=== PATIENT | male | born 1950 | race Caucasian/White ===

== ENCOUNTER 2018-10-26 09:48 | Outpatient (CLI) | payer OTHER ==
[~2018-10-26 09:48] MED LIST: ASPI-496 PO; ATOR20TA PO; LEVO500T47 PO; MAGN400T26 PO; METO-93 PO; METO25TA91 PO
== END 2018-10-26 23:59 | disposition home or self-care (01) ==
LOC: CFH 09:48
PROVIDERS: ATTEND Internal Medicine Cardiovascular Disease
DX: I08.8 Other rheumatic multiple valve diseases (principal); I25.10 Atherosclerotic heart disease of native coronary artery without angina pectoris; E78.5 Hyperlipidemia, unspecified
CPT/HCPCS: 93306

== ENCOUNTER 2019-04-27 06:26 | Day surgery (SDC) | payer OTHER ==
[~2019-04-27] VITALS: Ht 175.3 cm; Wt 82.6 kg
[2019-04-27] MEDS ORDERED: LACTATED RINGERS 1,000 ML IV SCH (07:06)
[2019-04-27] MEDS ORDERED: TRAM50TA2 PO (07:18)
[2019-04-27] MEDS ORDERED: LIDOCAINE-MPF 1%, 2ML INFIL ONE (07:30)
[2019-04-27 07:42] VITALS: BP 126/79
[2019-04-27] MEDS ORDERED: PROPOFOL 10 MG/ML, 50ML ONE (08:43)
[2019-04-27] MEDS ORDERED: MEPERIDINE/PF 25MG/0.5ML IVPush PRN (09:00)
[2019-04-27] MEDS ORDERED: HYDROmorphone 2 MG/ML, 1ML IVPush PRN (09:00)
[2019-04-27] MEDS ORDERED: hydrALAzine 20 MG/ML, 1ML IV PRN (09:00)
[2019-04-27] MEDS ORDERED: DIAZEPAM 5 MG/ML, 2ML IVPush PRN (09:00)
[2019-04-27] MEDS ORDERED: PROMETHAZINE 25 MG/ML, 1ML IV PRN (09:00)
[2019-04-27] MEDS ORDERED: LABETALOL 5MG/ML, 20ML IV PRN (09:00)
[2019-04-27] MEDS ORDERED: OXYcodone 5 MG/5 ML ORAL.SOL UDC PO PRN (09:00)
[2019-04-27] MEDS ORDERED: ACETAMINOPHEN 325 MG TABLET PO PRN (09:00)
[2019-04-27] MEDS ORDERED: ALBUTEROL SULFATE 2.5 MG/3 ML NPPB PRN (09:00)
[2019-04-27] MEDS ORDERED: FENTANYL PF 100 MCG/2ML IV PRN (09:00)
[2019-04-27] MEDS ORDERED: KETOROLAC 30 MG/1 ML IV PRN (09:00)
== END 2019-04-27 09:50 | disposition home or self-care (01) ==
LOC: OUT 06:26
PROVIDERS: ATTEND Internal Medicine Gastroenterology
DX: D12.3 Benign neoplasm of transverse colon (principal); K57.30 Diverticulosis of large intestine without perforation or abscess without bleeding; K64.4 Residual hemorrhoidal skin tags; K64.8 Other hemorrhoids; I25.2 Old myocardial infarction; Z79.82 Long term (current) use of aspirin; Z79.899 Other long term (current) drug therapy
CPT/HCPCS: 45381; 45385; 88305; 93005; J2704; J7120

== ENCOUNTER → 2020-01-23 | Outpatient (CLI) | payer OTHER ==
[~2020-01-23] MED LIST changes: +ACET650S21 PO; +ATOR40TA78 PO; +METO25TA35 PO; +TRAM50TA2 PO
[2020-01-23 16:41] LABS: BASOPHILS # (AUTO) 0.02 x10^3/uL (0-0.1); BASOPHILS % (AUTO) 0 % (0-1); EOSINOPHILS # (AUTO) 0.14 x10^3/uL (0-0.4); EOSINOPHILS % (AUTO) 3 % (1-7); LYMPHOCYTES # (AUTO) 1.59 x10^3/uL (1-3.4); LYMPHOCYTES % (AUTO) 28 % (22-44); MD NO; MEAN CORPUSCULAR HEMOGLOBIN 32.3 pg (27.5-34.5); MEAN CORPUSCULAR HGB CONC 33.7 g/dL (33.2-36.2); MEAN CORPUSCULAR VOLUME 95.7 fL (81-97); MEAN PLATELET VOLUME 8.7 fL (7.4-10.4); MONOCYTES % (AUTO) 7 % (2-9); NEUTROPHILS # (AUTO) 3.47 x10^3/uL (1.8-6.8); NEUTROPHILS % (AUTO) 62 % (42-75); PLATELET COUNT 188 x10^3/uL (130-400); RED BLOOD COUNT 5.25 x10^6/uL (4.38-5.82); RED CELL DISTRIBUTION WIDTH 14.5 % (9.4-14.8)
[2020-01-23 16:43] LABS: INTERNATIONAL NORMALIZED RATIO 1.01 (0.93-1.1); PROTHROMBIN TIME 10.4 Seconds (9.6-11.5)
[2020-01-23 16:56] LABS: CHLORIDE 108 mmol/L (98-107)
[2020-01-23 17:04] LABS: ANION GAP 5 mmol/L (5-15); CALCIUM 9.4 mg/dL (8.5-10.1); CREATININE 1.23 mg/dL (0.7-1.3)
== END | disposition home or self-care (01) ==
LOC: STAR 13:16
PROVIDERS: ATTEND Neurological Surgery
DX: Z01.818 Encounter for other preprocedural examination (principal); M48.061 Spinal stenosis, lumbar region without neurogenic claudication
CPT/HCPCS: 36415; 71046; 80048; 85025; 85610; 85730; 93005

== ENCOUNTER → 2020-02-02 | Outpatient (CLI) | payer OTHER | END | disposition home or self-care (01) | LOC: STAR 14:23 | PROVIDERS: ATTEND Anesthesiology | DX: Z01.812 Encounter for preprocedural laboratory examination (principal); Z20.828 Contact with and (suspected) exposure to other viral communicable diseases | CPT/HCPCS: 36415; 87635 ==

== ENCOUNTER 2020-02-06 09:17 | Day surgery (SDC) | payer OTHER ==
[~2020-02-06] VITALS: Ht 172.7 cm; Wt 73.5 kg
[~2020-02-06 09:17] MED LIST changes: +BACITRACIN 50,000 UNIT ONE; +BUPIVACAINE/PF 0.25% ONE; +EPINEPHRINE 1 MG/ML, 1ML ONE; +methylPREDNISolone SOD SUCC 40 MG/ML ONE
[2020-02-06] MEDS ORDERED: LACTATED RINGERS 1,000 ML IV SCH (09:39)
[2020-02-06 09:40] VITALS: BP 115/69
[2020-02-06] MEDS ORDERED: CHLORHEXIDINE 15 ML UDC MM ONE (10:00)
[2020-02-06] MEDS ORDERED: FENTANYL PF 250 MCG/5ML ONE (11:34)
[2020-02-06] MEDS ORDERED: MIDAZOLAM 1 MG/ML, 2ML ONE (11:34)
[2020-02-06] MEDS ORDERED: ACETAMINOPHEN 325 MG TABLET PO PRN (12:00)
[2020-02-06] MEDS ORDERED: PROMETHAZINE 25 MG SUPP PR PRN (12:00)
[2020-02-06] MEDS ORDERED: DIAZEPAM 5 MG/ML, 2ML IVPush PRN (12:00)
[2020-02-06] MEDS ORDERED: METHOCARBAMOL 1,000 MG in DEXTROSE 5% 100 ML IV PRN (12:00)
[2020-02-06] MEDS ORDERED: PROMETHAZINE 25 MG/ML, 1ML IVPush PRN (12:00)
[2020-02-06] MEDS ORDERED: METOPROLOL 1 MG/ML, 5ML IV PRN (12:00)
[2020-02-06] MEDS ORDERED: ONDANSETRON 2MG/ML, 2ML IVPush PRN (12:00)
[2020-02-06] MEDS ORDERED: HYDROmorphone 1 MG/ML, 1ML INJ IVPush PRN (12:00)
[2020-02-06] MEDS ORDERED: LORazepam 2 MG/ML, 1ML IVPush PRN (12:00)
[2020-02-06] MEDS ORDERED: hydrALAzine 20 MG/ML, 1ML IV PRN (12:00)
[2020-02-06] MEDS ORDERED: LABETALOL 5MG/ML, 20ML IV PRN (12:00)
[2020-02-06] MEDS ORDERED: NEOSTIGMINE 1 MG/ML, 10ML ONE (12:38)
[2020-02-06] MEDS ORDERED: ROCURONIUM 10MG/ML,5ML ONE (12:38)
[2020-02-06] MEDS ORDERED: SUCCINYLCHOLINE 20 MG/ML, 10ML ONE (12:38)
[2020-02-06] MEDS ORDERED: ONDANSETRON 2MG/ML, 2ML ONE (12:38)
[2020-02-06] MEDS ORDERED: CEFAZOLIN 1,000 MG ONE (12:38)
[2020-02-06] MEDS ORDERED: LIDOCAINE-MPF 2% ,5ML ONE (12:38)
[2020-02-06] MEDS ORDERED: DEXAMETHASONE 4 MG/ML, 1ML ONE (12:38)
[2020-02-06] MEDS ORDERED: GLYCOPYRROLATE 0.2MG/1ML, 5ML ONE (12:38)
[2020-02-06] MEDS ORDERED: PROPOFOL 10 MG/ML, 20ML ONE (12:38)
[2020-02-06] MEDS ORDERED: TIZA2TAB4 PO (13:02)
[2020-02-06] MEDS ORDERED: OXYC-302 PO (13:02)
[2020-02-06] MEDS ORDERED: FENTANYL PF 100 MCG/2ML ONE (13:29)
[2020-02-06] MEDS: FENTANYL PF 100 MCG/2ML IV PRN ×4 (13:31→14:04)
[2020-02-06] MEDS ORDERED: OXYcodone 5 MG/5 ML ORAL.SOL UDC ONE ×2 (13:39→15:05)
[2020-02-06] MEDS ORDERED: ACETAMINOPHEN 650 MG/20.3 ML UDC ONE (13:39)
[2020-02-06] MEDS: OXYcodone 5 MG/5 ML ORAL.SOL UDC PO PRN ×2 (13:42→15:07)
== END 2020-02-06 16:50 | disposition home or self-care (01) ==
LOC: OUT 09:17
PROVIDERS: ATTEND Neurological Surgery
DX: M50.121 Cervical disc disorder at C4-C5 level with radiculopathy (principal); M48.061 Spinal stenosis, lumbar region without neurogenic claudication; C61 Malignant neoplasm of prostate; I25.10 Atherosclerotic heart disease of native coronary artery without angina pectoris; I10 Essential (primary) hypertension; E78.5 Hyperlipidemia, unspecified; G47.10 Hypersomnia, unspecified; E78.00 Pure hypercholesterolemia, unspecified; Z79.899 Other long term (current) drug therapy; Z72.89 Other problems related to lifestyle; Z87.891 Personal history of nicotine dependence; Z98.890 Other specified postprocedural states
CPT/HCPCS: 20936; 22551; 22854; 63047; 63048; 63081; 72100; J0171; J0330; J0690; J1100; J2250; J2405; J2704; J2710; J2800; J3010; J3490; J7120; J2920